=== PATIENT | female | born 1970 | race Two or more races ===

== ENCOUNTER → 2017-11-10 | Outpatient (CLI) | payer OTHER ==
[~2017-11-10] MED LIST: GUIATUSS AC SY120 ML; KEFLEX500 MG PO; LEVAQUIN500 MG PO; LISINOPRIL10 MG PO; PROTONIX20 MG PO; TYLENOL # 31 EA PO
== END ==
LOC: MAMMO 10:59
PROVIDERS: ATTEND Internal Medicine
DX: Z12.31 Encounter for screening mammogram for malignant neoplasm of breast (principal)
CPT/HCPCS: 77067